=== PATIENT | female | born 2000 | race Hispanic/Latino ===

== ENCOUNTER 2020-01-09 04:37 | Inpatient (IN) | payer OTHER ==
[2020-01-09] MEDS ORDERED: TERBUTALINE 1 MG/1 ML INJ SUB-Q PRN (05:18)
[2020-01-09] MEDS ORDERED: ONDANSETRON 4 MG/2 ML INJ IV PRN ×2 (05:18→18:45)
[2020-01-09] MEDS ORDERED: ePHEDrine SULFATE 50 MG/1 ML INJ IV PRN (05:18)
[2020-01-09] MEDS ORDERED: LIDOCAINE (2%) 20 MG/1 ML VIAL 20 ML MDV INFILTRATI ONE (05:18)
[2020-01-09] MEDS ORDERED: MINERAL OIL 30 ML ORAL LIQD PO PRN (05:18)
--- NOTE | 2020-01-09 05:28 | History and Physical Report ---
History of Present Illness Date of examination: 01/09/20 (SROM) Date of admission: 01/09/2020 Chief complaint: "water broke" History of present illness: Patient presents to OB triage for LOF since 299. She reports gushes of clear fluid and contractions. She also reports good movement. She denies bleeding, headache, blurred vision, or edema. Father of baby: Fernando Chan FOB contact #: [phone] Vital Signs Height: 64 in. Weight (lb): 111 BMI: 19.1 Pre- Weight: 111 BP: 102/ 68 mm Hg Ur. Protein: negative Ur. Glucose: negative Chief Complaint/Current Status: Patient presents for missed period. Patient complains of nausea.....................................................................Orlando Matthews June 01, 2019 2:11 PM EDC set by jordyn garcia [facility] u/s as LMP was not sure. f/u 4 weeks for IOB ...................................................................Haylee Delcid CNM June 05, 2019 10:52 AM Menstrual History Regularity: regular Menses every: 30 days Duration: 5 LMP: 03/31/2019 LMP reliability: month known LMP character: normal test type: urine test Planned ? yes EDC Calculations EDC Confirmation: 01/25/2020 Gestational Age: 6 weeks Past History : 2 Term Births: 0 Premature Births: 0 Living Children: 0 Para: 0 Mult. Births: 0 Prev : 0 Prev. attempt? 0 Aborta: 1 Elect. Ab: 0 Spont. 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 Infection History Hx of STD: none HIV Risk Eval: low risk Hepatitis B Risk Eval: low risk Personal hx. of genital herpes: no Partner hx. of genital herpes: no Rash, Viral, or Febrile illness since last LMP? no Varicella/Chicken Pox Status: Immunized Genetic History Congenital Heart Defect: Mom: no Dad: no Jordin Disease: Mom: no Dad: no Thalassemia Mom: no Dad: no Neural Tube Defect Mom: no Dad: no Down's Syndrome Mom: no Dad: no Lukasz-Sachs Mom: no Dad: no Sickle Cell Disease/Trait Mom: no Dad: no Hemophilia Mom: no Dad: no Muscular Dystrophy Mom: no Dad: no Cystic Fibrosis Mom: no Dad: no [place] Chorea Mom: no Dad: no Mental Retardation Mom: no Dad: no Fragile X Mom: no Dad: no Other Genetic/Chromosomal Disorder Mom: no Dad: no Child w/other defect Mom: no Dad: no Enviromental Exposures Xray Exposure: no Medication, drug, or alcohol use since LMP: no Chemical/Other Exposure: no Exposure to Cat Liter: no Hx of Parvovirus (Fifth Disease): no Occupational Exposure to Children: none Current Allergies (reviewed today): No known allergies Past History Past Medical History: no pertinent history Past Surgical History: other (tonsillectomy) Family/Genetic History: none Social history: single - Obstetrical History Expected Date of Delivery: 01/25/20 Actual Gestation: 37 Week(s) 5 Day(s) : 2 Para: 0 Hx # Term Pregnancies: 0 Number of Pregnancies: 0 Spontaneous Abortions: 1 Induced : 0 Number of Living Children: 0 Medications and Allergies Allergies Allergy/AdvReac Type Severity Reaction Status Date / Time Beef Containing Products Allergy Nausea Unverified 01/02/20 06:46 milk Allergy Nausea Unverified 01/02/20 06:46 pork derived (porcine) Allergy Nausea Unverified 01/02/20 06:46 Review of Systems All systems: negative Genitourinary: leakage of fluid (clear fluid ) Rectal Exam: deferred - Vital Signs Vital signs: Vital Signs Pulse BP Pulse Ox 105 H 105/71 98 01/09/20 04:58 01/09/20 04:58 01/09/20 04:58 Temp Pulse Resp BP Pulse Ox 93 H 16 105/71 97 01/09/20 05:18 01/09/20 05:00 01/09/20 05:00 01/09/20 05:18 - Physical Exam Breasts: Positive: deferred Cardiovascular: Regular rate Lungs: Positive: Normal air movement Abdomen: Positive: normal appearance, soft Genitourinary (Female): Positive: normal external genitalia Vulva: both: normal Vagina: Positive: normal moisture Extremities: Positive: normal Deep Tendon Reflex Grade: Normal +2 - Obstetrical FHR: category 1 Uterine Contraction Monitor Mode: External Cervical Dilatation: 4.5 Cervical Effacement Percentage: 70 station: -2 Uterine Contraction Frequency (min): 2 Uterine Contraction Duration: 40-70 Uterine Contraction Pattern: Regular Uterine Tone Measurement Phase: Contraction Uterine Contraction Intensity: Moderate Results Result Diagrams: 01/09/20 05:18 All other labs normal. GBS Negative HBsAg Screen Negative Negative *1 RPR Non Reactive Non Reactive *2 Rubella Antibodies, IgG 2.35 index Immune >0.99 *3 Non-immune <0.90 Equivocal 0.90 - 0.99 Immune >0.99 ABO Grouping A *4 Rh Factor Positive *5 Please note: Prior records for this patient's ABO / Rh type are not available for additional verification. Antibody Screen Negative Negative *6 WBC 8.9 x10E3/uL 3.4-10.8 *7 RBC 4.29 x10E6/uL 3.77-5.28 *8 Hemoglobin 12.6 g/dL 11.1-15.9 *9 Hematocrit 37.1 % 34.0-46.6 *10 MCV 87 fL 79-97 *11 MCH 29.4 pg 26.6-33.0 *12 MCHC 34.0 g/dL 31.5-35.7 *13 RDW 13.3 % 11.7-15.4 *14 Platelets 152 x10E3/uL 150-450 *15 Neutrophils 70 % Not Estab. *16 Lymphs 22 % Not Estab. *17 Monocytes 6 % Not Estab. *18 Eos 2 % Not Estab. *19 Basos 0 % Not Estab. *20 ! Immature Cells <No Reported Value> *21 Neutrophils (Absolute) 6.2 x10E3/uL 1.4-7.0 *22 Lymphs (Absolute) 2.0 x10E3/uL 0.7-3.1 *23 Monocytes(Absolute) 0.6 x10E3/uL 0.1-0.9 *24 Eos (Absolute) 0.1 x10E3/uL 0.0-0.4 *25 Baso (Absolute) 0.0 x10E3/uL 0.0-0.2 *26 ! Immature Granulocytes 0 % Not Estab. *27 ! Immature Grans (Abs) 0.0 x10E3/uL 0.0-0.1 *28 ! NRBC <No Reported Value> *29 Hematology Comments: <No Reported Value> *30 Tests: (2) AFP Tetra ([id number]) ! Results Report *31 ! Test Results: *Screen Negative* *32 ! Gest. Age on Collection Date 15.1 WEEKS *33 ! Gestat. Age Based On Ultrasound *34 15.1 on 08/04/2019 ! M[age]DA [age] *35 ! Race *36 ! Weight 110 lbs *37 ! Insulin Dep Diabetes No *38 ! Multiple Gestation No *39 ! AFP Value 29.1 ng/mL *40 ! AFP MoM 0.80 *41 ! hCG Value 59909 mIU/mL *42 ! hCG MoM 0.39 *43 ! uE3 Value 0.96 ng/mL *44 ! uE3 MoM 1.17 *45 ! FLORENCE Value 197.40 pg/mL *46 ! FLORENCE MoM 0.90 *47 ! OSBR Risk 1 [place] [address] *48 ! DSR (Second Trimester) 1 [place] [address] *49 ! DSR (By Age) 1 IN 1161 *50 ! T18 Risk Not increased *51 ! T18 (By Age) 1:4522 *52 ! Interpretation NL42 *53 Interpretation: Screen Negative Tests: (3) HIV Ag/Ab with Reflex (083253) HIV Screen 4th Generation wRfx Non Reactive Non Reactive *55 Tests: (4) HCV Ab w/Rflx to Verification ([id number]) ! HCV Ab <0.1 s/co ratio 0.0-0.9 *56 Tests: (5) Comment: ([id number]) ! Tests: (6) Urine Culture, Routine ([id number]) Urine Culture, Routine ! Result 1 [A] Escherichia coli *59 Greater than 100,000 colony forming units per mL Chlamydia by EL Negative Negative *1 Gonococcus by EL Negative Negative *2 Trich vag by EL Negative Negative *3 Tests: (2) Strep Gp B EL ([id number]) ! Strep Gp B EL Negative Negative Assessment and Plan A: IUP @ 37.5 weeks , negative GBS, A+/I. SROM clear since 299. SVE 4.5/70/-2 with vertex presentation. CAT I tracing and spontaneous contractions q 2 minutes, moderate. P: Routine admission to labor unit with continuous monitoring and epidural when desired. Expectant management at this time. Pitocin augmentation as needed. Plan for . Patient and significant other agrees with plan. - Patient Problems (1) Spontaneous rupture of membranes Onset Date: ~01/09/20 Current Visit: Yes Status: Acute Plan to address problem: SROM clear since 299 today. GBS negative with regular contractions. P: ROutine admission to labor unit for SROm in active labor. Monitor temperature per protocol. Plan for (2) 37 or more weeks gestation of Onset Date: ~01/09/20 Current Visit: Yes Status: Acute Plan to address problem: IUP @ 37.5 weeks with SROM clear and active labor. Routine admission to labor unit. GBS negative. Plan for (3) Active labor at term Onset Date: ~01/09/20 Current Visit: Yes Status: Acute Plan to address problem: Routine admission to labor unit. Pitocin augmentation as needed. Plan for .
[2020-01-09 05:54] LABS: Hematocrit 32.7 % (30.3-42.9); Hemoglobin 10.7 gm/dl (10.1-14.3); Mean Corpuscular HGB Conc 33 % (30-34); Mean Corpuscular Volume 86 fl (79-97); Platelet Count 229 K/mm3 (140-440); Red Blood Count 3.81 M/mm3 (3.65-5.03); Red Cell Distribution Width 14.8 % (13.2-15.2)
[2020-01-09] MEDS ORDERED: ALUM-MAG HYDROXIDE-SIMETHICONE 200-200-20MG/5ML ORAL LIQD 30 ML PO STA (05:59)
[2020-01-09] MEDS ORDERED: OXYTOCIN 20 UNIT/1000ML DRIP 20 UNITS/1,000 ML BAG IV SCH ×2 (06:00→19:00)
[2020-01-09] MEDS: LACTATED RINGERS 1,000 ML IV SCH ×3 (06:11→10:59)
--- NOTE | 2020-01-09 07:02 | Progress Note ---
Assessment and Plan A: SROM clear, Cat I tracing, regular contractions, VSS. Continue expectant management. Monitor temperature per protocol for ROM. Epidural when desired. Patient and significant other agrees with the plan. Plan for - Patient Problems (1) Spontaneous rupture of membranes Onset Date: ~01/09/20 Current Visit: Yes Status: Acute (2) 37 or more weeks gestation of Onset Date: ~01/09/20 Current Visit: Yes Status: Acute (3) Active labor at term Onset Date: ~01/09/20 Current Visit: Yes Status: Acute Subjective - Subjective Date of service: 01/09/20 Principal diagnosis: SROM clear @ 37.5 weeks Interval history: Patient presents to OB triage for LOF since 299. She reports gushes of clear fluid and contractions. She also reports good movement. She denies bleeding, headache, blurred vision, or edema. Father of baby: Fernando Chan FOB contact #: [phone] Vital Signs Height: 64 in. Weight (lb): 111 BMI: 19.1 Pre- Weight: 111 BP: 102/ 68 mm Hg Ur. Protein: negative Ur. Glucose: negative Chief Complaint/Current Status: Patient presents for missed period. Patient complains of nausea.....................................................................Orlando Matthews June 01, 2019 2:11 PM EDC set by jordyn garcia [facility] u/s as LMP was not sure. f/u 4 weeks for IOB ...................................................................Haylee Delcid CNM June 05, 2019 10:52 AM Menstrual History Regularity: regular Menses every: 30 days Duration: 5 LMP: 03/31/2019 LMP reliability: month known LMP character: normal test type: urine test Planned ? yes EDC Calculations EDC Confirmation: 01/25/2020 Gestational Age: 6 weeks Past History : 2 Term Births: 0 Premature Births: 0 Living Children: 0 Para: 0 Mult. Births: 0 Prev : 0 Prev. attempt? 0 Aborta: 1 Elect. Ab: 0 Spont. 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 Infection History Hx of STD: none HIV Risk Eval: low risk Hepatitis B Risk Eval: low risk Personal hx. of genital herpes: no Partner hx. of genital herpes: no Rash, Viral, or Febrile illness since last LMP? no Varicella/Chicken Pox Status: Immunized Genetic History Congenital Heart Defect: Mom: no Dad: no Jordin Disease: Mom: no Dad: no Thalassemia Mom: no Dad: no Neural Tube Defect Mom: no Dad: no Down's Syndrome Mom: no Dad: no Lukasz-Sachs Mom: no Dad: no Sickle Cell Disease/Trait Mom: no Dad: no Hemophilia Mom: no Dad: no Muscular Dystrophy Mom: no Dad: no Cystic Fibrosis Mom: no Dad: no [place] Chorea Mom: no Dad: no Mental Retardation Mom: no Dad: no Fragile X Mom: no Dad: no Other Genetic/Chromosomal Disorder Mom: no Dad: no Child w/other defect Mom: no Dad: no Enviromental Exposures Xray Exposure: no Medication, drug, or alcohol use since LMP: no Chemical/Other Exposure: no Exposure to Cat Liter: no Hx of Parvovirus (Fifth Disease): no Occupational Exposure to Children: none Current Allergies (reviewed today): No known allergies Patient reports: loss of fluid (clear fluid continues to come out), movement normal, contractions (tolerable) Objective - Vital Signs Vital Signs: Vital Signs - 12hr 01/09/20 01/09/20 01/09/20 04:58 05:00 05:03 Temperature Pulse Rate 105 H 107 H 111 H Respiratory 16 Rate Blood Pressure 105/71 Blood Pressure 105/71 [Left] O2 Sat by Pulse 98 97 100 Oximetry 01/09/20 01/09/20 01/09/20 05:08 05:13 05:18 Temperature Pulse Rate 95 H 133 H 93 H Respiratory Rate Blood Pressure Blood Pressure [Left] O2 Sat by Pulse 97 98 97 Oximetry 01/09/20 01/09/20 01/09/20 05:23 05:55 06:03 Temperature 98.1 F Pulse Rate 114 H 118 H 87 Respiratory 18 Rate Blood Pressure Blood Pressure 109/62 [Left] O2 Sat by Pulse 97 97 Oximetry 01/09/20 01/09/20 01/09/20 06:08 06:13 06:18 Temperature Pulse Rate 83 90 104 H Respiratory Rate Blood Pressure Blood Pressure [Left] O2 Sat by Pulse 97 98 98 Oximetry 01/09/20 01/09/20 01/09/20 06:23 06:28 06:33 Temperature Pulse Rate 109 H 113 H 83 Respiratory Rate Blood Pressure Blood Pressure [Left] O2 Sat by Pulse 98 97 97 Oximetry 01/09/20 01/09/20 01/09/20 06:38 06:43 06:48 Temperature Pulse Rate 108 H 102 H 85 Respiratory Rate Blood Pressure Blood Pressure [Left] O2 Sat by Pulse 98 97 98 Oximetry - Exam Breasts: deferred Cardiovascular: Regular rate Lungs: Normal air movement Abdomen: Present: normal appearance, soft Vulva: both: normal Uterus: Present: normal FHR: category 1 Uterine Contraction Monitor Mode: External Cervical Dilatation: 4.5 Cervical Effacement Percentage: 70 station: -2 Uterine Contraction Pattern: Regular Uterine Contraction Intensity: Moderate Extremities: normal Deep Tendon Reflex Grade: Normal +2 - Labs Labs: Laboratory Results - last 24 hr 01/09/20 01/09/20 05:18 05:18 WBC 10.7 RBC 3.81 Hgb 10.7 Hct 32.7 MCV 86 MCH 28 MCHC 33 RDW 14.8 Plt Count 229 Blood Type A POSITIVE Antibody Screen Negative
[2020-01-09] MEDS ORDERED: NALOXONE 2 MG/2 ML INJ IV PRN (09:24)
--- NOTE | 2020-01-09 09:24 | Anesthesia Consultation ---
Anesthesia Consult and Med Hx Date of service: 01/09/20 - Airway Anesthetic Teeth Evaluation: Good ROM Head & Neck: Adequate Mental/Hyoid Distance: Adequate Mallampati Class: Class II Intubation Access Assessment: Probably Good - Pulmonary Exam CTA: Yes - Cardiac Exam Cardiac Exam: RRR - Pre-Operative Health Status ASA Pre-Surgery Classification: ASA2 Proposed Anesthetic Plan: Epidural - Pulmonary Hx Smoking: No Hx Asthma: Yes Hx Respiratory Symptoms: No SOB: No COPD: No Home Oxygen Therapy: No Hx Pneumonia: No Hx Sleep Apnea: No - Cardiovascular System Hx Hypertension: No Hx Coronary Artery Disease: No Hx Heart Attack/AMI: No Hx Angina: No Hx Percutaneous Transluminal Coronary Angioplasty (PTCA): No Hx Cardia Arrhythmia: No Hx Pacemaker: No Hx Internal Defibrillator: No Hx Valvular Heart Disease: No Hx Heart Murmur: No Hx Peripheral Vascular Disease: No - Central Nervous System Hx Neuromuscular Disorder: No Hx Seizures: No CVA: No Hx Back Pain: No Hx Psychiatric Problems: No - Gastrointestinal Hx Ulcer: No Hx Gastroesophageal Reflux Disease: No - Endocrine Hx Renal Disease: No Hx End Stage Renal Disease: No Hx Cirrhosis: No Hx Liver Disease: No Hx Insulin Dependent Diabetes: No Hx Non-Insulin Dependent Diabetes: No Hx Thyroid Disease: No Hx Hypothyroidism: No Hx Hyperthyroidism: No - Hematic Hx Anemia: Yes Hx Sickle Cell Disease: No - Other Systems Hx Alcohol Use: No Hx Substance Use: No Hx Cancer: No Hx Obesity: No
[2020-01-09] MEDS ORDERED: DEXMEDETOMIDINE 200 MCG/2 ML VIAL IV ONE (09:29)
[2020-01-09] MEDS ORDERED: fentaNYL-BUPIV 2 MCG/ML-0.125% 200 MCG/100 ML BAG EPIDURAL SCH (10:00)
--- NOTE | 2020-01-09 10:25 | Progress Note ---
Labor Epidural - Labor Epidural Start Time: 09:40 Stop Time: :09 Performed by:: FERNANDA RAGLAND Procedure: Patient is requesting combined spinal epidural for labor and pain. H&P, labs were reviewed. All questions and concerns were answered. Informed consent was obtained. Timeout performed. Patient in sitting position on side of bed. Sterile prep and drape was performed. 3 mL 1% lidocaine skin wheal at L [3]-L [4]. 18-gauge Tuohy epidural needle advanced to [id number] using air technique, [5cm]. 27-gauge spinal needle advanced, positive free-flowing CSF. Spinal dose of [Precedex 10mcg]. Epidural catheter advanced to [10] cm. [negative] Aspiration, [negative] test dose. Sterile dressing applied. Patient tolerated procedure well.
[2020-01-09] MEDS: ePHEDrine SULFATE 50 MG/1 ML INJ IV PRN ×2 (10:30→13:34)
--- NOTE | 2020-01-09 12:32 | Progress Note ---
Assessment and Plan A: @ 37.6 wks, SROM this AM. Comfortable with epidural. Cervical exam /- per RN. P: Continue with current management. Anticipate . Subjective - Subjective Date of service: 01/09/20 (Pt was feeling pressure) Principal diagnosis: SROM clear @ 37.5 weeks Patient reports: new complaints (feeling pressure) Objective - Vital Signs Vital Signs: Vital Signs - 12hr 01/09/20 01/09/20 01/09/20 04:58 05:00 05:03 Temperature Pulse Rate 105 H 107 H 111 H Respiratory 16 Rate Blood Pressure 105/71 Blood Pressure 105/71 [Left] O2 Sat by Pulse 98 97 100 Oximetry 01/09/20 01/09/20 01/09/20 05:08 05:13 05:18 Temperature Pulse Rate 95 H 133 H 93 H Respiratory Rate Blood Pressure Blood Pressure [Left] O2 Sat by Pulse 97 98 97 Oximetry 01/09/20 01/09/20 01/09/20 05:23 05:55 06:03 Temperature 98.1 F Pulse Rate 114 H 118 H 87 Respiratory 18 Rate Blood Pressure Blood Pressure 109/62 [Left] O2 Sat by Pulse 97 97 Oximetry 01/09/20 01/09/20 01/09/20 06:08 06:13 06:18 Temperature Pulse Rate 83 90 104 H Respiratory Rate Blood Pressure Blood Pressure [Left] O2 Sat by Pulse 97 98 98 Oximetry 01/09/20 01/09/20 01/09/20 06:23 06:28 06:33 Temperature Pulse Rate 109 H 113 H 83 Respiratory Rate Blood Pressure Blood Pressure [Left] O2 Sat by Pulse 98 97 97 Oximetry 01/09/20 01/09/20 01/09/20 06:38 06:43 06:48 Temperature Pulse Rate 108 H 102 H 85 Respiratory Rate Blood Pressure Blood Pressure [Left] O2 Sat by Pulse 98 97 98 Oximetry 01/09/20 01/09/20 01/09/20 07:33 07:35 08:16 Temperature 98.1 F Pulse Rate 88 86 Respiratory Rate Blood Pressure 102/61 Blood Pressure [Left] O2 Sat by Pulse 97 Oximetry 01/09/20 01/09/20 01/09/20 08:35 08:40 08:45 Temperature Pulse Rate 89 79 86 Respiratory Rate Blood Pressure Blood Pressure [Left] O2 Sat by Pulse 98 98 99 Oximetry 01/09/20 01/09/20 01/09/20 08:50 08:55 09:00 Temperature Pulse Rate 87 86 89 Respiratory Rate Blood Pressure Blood Pressure [Left] O2 Sat by Pulse 99 98 98 Oximetry 01/09/20 01/09/20 01/09/20 09:05 09:10 09:15 Temperature Pulse Rate 94 H 85 81 Respiratory Rate Blood Pressure Blood Pressure [Left] O2 Sat by Pulse 98 97 96 Oximetry 01/09/20 01/09/20 01/09/20 09:20 09:25 09:30 Temperature Pulse Rate 100 H 84 87 Respiratory Rate Blood Pressure Blood Pressure [Left] O2 Sat by Pulse 98 97 99 Oximetry 01/09/20 01/09/20 01/09/20 09:35 09:40 09:45 Temperature Pulse Rate 107 H 112 H 102 H Respiratory Rate Blood Pressure Blood Pressure [Left] O2 Sat by Pulse 99 99 99 Oximetry 01/09/20 01/09/20 01/09/20 09:50 09:55 09:56 Temperature Pulse Rate 81 92 H 94 H Respiratory Rate Blood Pressure 107/58 Blood Pressure [Left] O2 Sat by Pulse 97 98 Oximetry 01/09/20 01/09/20 01/09/20 09:59 10:00 10:02 Temperature Pulse Rate 96 H 82 100 H Respiratory Rate Blood Pressure 115/63 113/62 Blood Pressure [Left] O2 Sat by Pulse 97 Oximetry 01/09/20 01/09/20 01/09/20 10:05 10:08 10:10 Temperature Pulse Rate 102 H 95 H 103 H Respiratory Rate Blood Pressure 122/67 111/59 Blood Pressure [Left] O2 Sat by Pulse 98 97 Oximetry 01/09/20 01/09/20 01/09/20 10:11 10:14 10:15 Temperature Pulse Rate 110 H 98 H 104 H Respiratory Rate Blood Pressure 102/58 104/55 Blood Pressure [Left] O2 Sat by Pulse 97 Oximetry 01/09/20 01/09/20 01/09/20 10:17 10:20 10:23 Temperature Pulse Rate 93 H 98 H 86 Respiratory Rate Blood Pressure 83/45 76/44 92/55 Blood Pressure [Left] O2 Sat by Pulse 100 Oximetry 01/09/20 01/09/20 01/09/20 10:25 10:26 10:29 Temperature Pulse Rate 108 H 93 H 97 H Respiratory Rate Blood Pressure 89/55 86/54 Blood Pressure [Left] O2 Sat by Pulse 99 Oximetry 01/09/20 01/09/20 01/09/20 10:30 10:32 10:35 Temperature Pulse Rate 82 79 157 H Respiratory Rate Blood Pressure 95/57 72/39 Blood Pressure [Left] O2 Sat by Pulse 99 Oximetry 01/09/20 01/09/20 01/09/20 10:37 10:38 10:40 Temperature Pulse Rate 102 H 74 89 Respiratory Rate Blood Pressure 74/44 115/72 Blood Pressure [Left] O2 Sat by Pulse 100 Oximetry 01/09/20 01/09/20 01/09/20 10:41 10:42 10:44 Temperature Pulse Rate 81 101 H 82 Respiratory Rate Blood Pressure 126/64 124/62 Blood Pressure [Left] O2 Sat by Pulse 92 Oximetry 01/09/20 01/09/20 01/09/20 10:45 10:50 10:53 Temperature Pulse Rate 110 H 82 105 H Respiratory Rate Blood Pressure 108/60 89/51 Blood Pressure [Left] O2 Sat by Pulse 100 99 Oximetry 01/09/20 01/09/20 01/09/20 10:55 10:59 11:00 Temperature Pulse Rate 98 H 103 H 72 Respiratory Rate Blood Pressure 105/57 104/57 Blood Pressure [Left] O2 Sat by Pulse 99 98 Oximetry 01/09/20 01/09/20 01/09/20 11:02 11:05 11:08 Temperature Pulse Rate 80 98 H 98 H Respiratory Rate Blood Pressure 106/63 106/65 100/59 Blood Pressure [Left] O2 Sat by Pulse 98 Oximetry 01/09/20 01/09/20 01/09/20 11:10 11:14 11:15 Temperature Pulse Rate 77 100 H 112 H Respiratory Rate Blood Pressure 109/55 Blood Pressure [Left] O2 Sat by Pulse 98 100 Oximetry 01/09/20 01/09/20 01/09/20 11:17 11:20 11:23 Temperature Pulse Rate 73 122 H 94 H Respiratory Rate Blood Pressure 103/58 104/57 100/61 Blood Pressure [Left] O2 Sat by Pulse 99 Oximetry 01/09/20 01/09/20 01/09/20 11:25 11:26 11:29 Temperature Pulse Rate 73 87 105 H Respiratory Rate Blood Pressure 106/60 105/60 Blood Pressure [Left] O2 Sat by Pulse 99 Oximetry 01/09/20 01/09/20 01/09/20 11:30 11:32 11:35 Temperature Pulse Rate 94 H 127 H 133 H Respiratory Rate Blood Pressure 90/55 77/44 Blood Pressure [Left] O2 Sat by Pulse 99 100 Oximetry 01/09/20 01/09/20 01/09/20 11:38 11:40 11:41 Temperature Pulse Rate 153 H 78 80 Respiratory Rate Blood Pressure 59/36 109/70 Blood Pressure [Left] O2 Sat by Pulse 99 Oximetry 01/09/20 01/09/20 01/09/20 11:44 11:45 11:47 Temperature Pulse Rate 75 81 75 Respiratory Rate Blood Pressure 114/72 112/68 Blood Pressure [Left] O2 Sat by Pulse 100 Oximetry 01/09/20 01/09/20 01/09/20 11:50 11:53 11:55 Temperature Pulse Rate 78 112 H 85 Respiratory Rate Blood Pressure 120/64 95/58 Blood Pressure [Left] O2 Sat by Pulse 100 100 Oximetry 01/09/20 01/09/20 01/09/20 11:56 11:59 12:00 Temperature Pulse Rate 85 91 H 87 Respiratory Rate Blood Pressure 109/68 114/68 Blood Pressure [Left] O2 Sat by Pulse 99 Oximetry 01/09/20 01/09/20 01/09/20 12:02 12:05 12:08 Temperature Pulse Rate 86 107 H 103 H Respiratory Rate Blood Pressure 114/70 120/70 115/62 Blood Pressure [Left] O2 Sat by Pulse 98 92 Oximetry 01/09/20 01/09/20 01/09/20 12:10 12:11 12:14 Temperature Pulse Rate 110 H 110 H 104 H Respiratory Rate Blood Pressure 107/62 113/64 Blood Pressure [Left] O2 Sat by Pulse 91 Oximetry 01/09/20 01/09/20 01/09/20 12:16 12:17 12:20 Temperature Pulse Rate 85 99 H 108 H Respiratory Rate Blood Pressure 114/67 109/72 Blood Pressure [Left] O2 Sat by Pulse 87 Oximetry 01/09/20 01/09/20 01/09/20 12:21 12:23 12:26 Temperature Pulse Rate 85 86 70 Respiratory Rate Blood Pressure 115/68 116/72 Blood Pressure [Left] O2 Sat by Pulse 99 88 Oximetry - Exam Breasts: deferred Cardiovascular: Regular rate Lungs: Normal air movement Abdomen: Present: normal appearance, soft Vulva: both: normal Uterus: Present: normal FHR: category 1 Uterine Contraction Monitor Mode: External Cervical Dilatation: 8 (Per RN) Cervical Effacement Percentage: 100 station: -1 Uterine Contraction Pattern: Regular Uterine Tone Measurement Phase: Resting Uterine Contraction Intensity: Moderate Extremities: normal Deep Tendon Reflex Grade: Normal +2 - Labs Labs: Laboratory Results - last 24 hr 01/09/20 01/09/20 05:18 05:18 WBC 10.7 RBC 3.81 Hgb 10.7 Hct 32.7 MCV 86 MCH 28 MCHC 33 RDW 14.8 Plt Count 229 Blood Type A POSITIVE Antibody Screen Negative
--- NOTE | 2020-01-09 16:54 | Procedure Note ---
OB Delivery Note - Delivery Date of Delivery: 01/09/20 Surgeon: LENIN ACUÑA Order Worker: GRACY BISWAS (ONIEL Walter ) Estimated blood loss: 200cc - Vaginal Delivery position: OP Intrapartum events: none, mult.variable deceleratio Delivery induction: none Delivery monitor: external FHT Route of delivery: Delivery placenta: spontaneous Delivery cord: nuchal cord, 3 umbilical vessels Episiotomy: none Delivery laceration: 1st degree, other (Superficial periurethral lacerations ) Anesthesia: epidural Delivery comments: Pt progressed to complete with urge to push, nuchal cord x1 easily reduced before delivery of shoulders, delivery of vigorous baby girl, placed to abd, dried and stimulated. Delayed cord clamping, cord cut by FOB. Placenta delivered intact and complete over intact perineum, three vessel cord. 1st degree perineal laceration to right side of vaginal floor, no repair needed, bilateral superficial periurethral lacerations. EBL 200 cc. Fundus firm and midline. APGARS: 8,9. Weight: 6-9. Instrument and sponge count correct x2. Begin routine PP plan of care, re-eval prn. -ONIEL Walter
--- NOTE | 2020-01-09 17:53 | Event Note ---
Date: 01/09/20 (Late Entry) Late Entry: Was call by RN [id number] that pt was feeling pressure, but also was stating that the pt could not breath and was hyperventilating. Her epidural place had been placed around 1030. Upon enter room pt had brown paper bag to her face and was breathing deeply. Her O2 sats were 100% on room air. Cervical exam 10/100/+1. heart rate deceleration down into the 40's began with contractions but recovery to 120's. She was turned on her side during the deceleration, and O2 was given via face mask with recover of heart rate 120's. Pushing was attempted and heart rate decelerations continued down into the 40's with no recovery to baseline for 5 minutes. Interventions completed again, and Dr. Brown was called to the bedside. RN noted that patient's BP's were noted to be 80's/40's. Ephedrine was administered with blood pressures increasing to 110's/60's. There was also recovery of heart rate to 120's sustained.
[2020-01-09] MEDS ORDERED: WITCH HAZEL/ GLYCERIN PAD TP PRN (18:45)
[2020-01-09] MEDS ORDERED: diphenhydrAMINE 25 MG CAP PO PRN (18:45)
[2020-01-09] MEDS ORDERED: PROMETHAZINE 25 MG TAB PO PRN (18:45)
[2020-01-09] MEDS ORDERED: BENZOCAINE/MENTHOL 20/0.5% TOP SPRAY 56 GM TP PRN (18:45)
[2020-01-09] MEDS ORDERED: MAGNESIUM HYDROXIDE (MOM) ORAL LIQD UDC PO PRN (18:45)
[2020-01-09] MEDS ORDERED: LANOLIN/ZINC/DIMETHICONE (LANSINOH) 7 GM TP PRN ×2 (18:45)
[2020-01-09] MEDS ORDERED: IBUPROFEN 600 MG TAB PO SCH (19:00)
[2020-01-09] MEDS: IBUPROFEN 800 MG TAB PO SCH (19:06)
[2020-01-09] MEDS: DOCUSATE SODIUM 100 MG CAP PO SCH (22:09)
[2020-01-09] MEDS: ACETAMINOPHEN 325 MG TAB PO PRN (23:48)
[2020-01-10] MEDS: IBUPROFEN 800 MG TAB PO SCH ×3 (05:00→19:30)
--- NOTE | 2020-01-10 06:58 | Discharge Summary ---
Providers - Providers Date of Admission: 01/09/20 05:19 Date of discharge: 01/10/20 (pt agrees with d/c) Attending physician: JEIMY GUY Primary care physician: JEIMY GUY Hospitalization Reason for admission: active labor Delivery: Episiotomy: none Laceration: none Incision: normal Other procedures: none complications: none Discharge diagnosis: IUP at term delivered [place] baby: female Hospital course: uncomplicated vaginal delivery Pt alert No c/o voiced VSS FF below umb Lochia small Perineum slight swelling intact H&H pending Doing well s/p vag delivery P: d/c today with instructions RTO 4 weeks PP care. Condition at discharge: Good Disposition: DC-01 TO HOME OR SELFCARE - Discharge Diagnoses (1) Spontaneous vaginal delivery Status: Acute Comment: RTO 4 weeks PP care Plan - Provider Discharge Summary Activity: routine, no sex for 6 weeks, no heavy lifting 4 weeks, no strenuous exercise Diet: routine Instructions: routine Additional instructions: [] Smoking cessation referral if applicable(refer to patient education folder for contact #) [] Refer to [facility]'s [facility] Booklet Call your doctor immediately for: * Fever > 100.5 * Heavy vaginal bleeding ( >1 pad per hour) * Severe persistent headache * Shortness of breath * Reddened, hot, painful area to leg or breast * Drainage or odor from incision. * Keep incision clean and dry at all times and follow doctor's instructions regarding bathing/showering - Follow up plan Follow up: JEIMY GUY MD [Primary Care Provider] - 02/12/20 (Congratulations! Please call [phone] to schedule your visit in 1 week. Motrin/ibuprofen for pain/cramping. Call with any concerns.)
[2020-01-10 07:06] LABS: Hematocrit 27.7 % (30.3-42.9); Hemoglobin 9.3 gm/dl (10.1-14.3)
[2020-01-10] MEDS ORDERED: PRENATAL VIT27-FE FUMARATE-FOLIC ACID VIT TAB PO SCH (10:00)
[2020-01-10] MEDS: DOCUSATE SODIUM 100 MG CAP PO SCH (10:08)
[2020-01-10] MEDS: ACETAMINOPHEN 325 MG TAB PO PRN (16:39)
--- NOTE | 2020-01-10 16:48 | Post Anesthesia Evaluation ---
- Post Anesthesia Evaluation Patient Participated: Yes Airway Patent: Yes Stable Respiratory Function: Yes Nausea/Vomiting: No Temp > 96.8F: Yes Pain Manageable: Yes Adequeate Hydration: Yes Anesthesia Complications: No Block Receding Appropriately: Yes Patient on Ventilator: No Other Comments: C/O FRONTAL HEADACHE AND NECK STIFFNESS BUT THINKS ITS RELATED TO NOT EATING. WANTS TO GO HOME TODAY. IF SYMPTOMS CONTINUES OR DOESN'T IMPROVE TO CONTACT ANESTHESIA DEPARTMENT.
[2020-01-10] MEDS ORDERED: DIPHtheria,PERTUSSIS(ACELL),TETANUS VACCINE/PF 0.5 ML VIAL IM ONE (18:46)
[2020-01-10 22:06] VITALS: BP 100/60
== END 2020-01-10 21:00 | disposition home or self-care (01) | DRG 775 ==
LOC: TRG 04:37 → APU 04:38 → LD 05:19 → TRG 05:19 → OB 18:19
PROVIDERS: ADMIT Obstetrics & Gynecology; ATTEND Obstetrics & Gynecology
PROC: 10E0XZZ Delivery of Products of Conception, External Approach (ICD-10-PCS; principal; 2020-01-09)
PROC: 3E0R3BZ Introduction of Anesthetic Agent into Spinal Canal, Percutaneous Approach (ICD-10-PCS; 2020-01-09)
PROC: 00HU33Z Insertion of Infusion Device into Spinal Canal, Percutaneous Approach (ICD-10-PCS; 2020-01-09)
PROC: 0HQ9XZZ Repair Perineum Skin, External Approach (ICD-10-PCS; 2020-01-09)
DX: O42.02 Full-term premature rupture of membranes, onset of labor within 24 hours of rupture (principal); Z3A.37 37 weeks gestation of pregnancy; Z37.0 Single live birth; Z91.011 Allergy to milk products; Z91.018 Allergy to other foods; O70.0 First degree perineal laceration during delivery
CPT/HCPCS: 36415; 85014; 85018; 85027; 86850; 86900; 86901; G0378; J2405; J2590; J3105; J3490; J7120